=== PATIENT | female | born 1950 | race Asian ===

== ENCOUNTER → 2016-07-28 | Outpatient (CLI) | payer MEDICARE, BC | LOC: RAD 07:35 | PROVIDERS: ATTEND Internal Medicine Geriatric Medicine | DX: R13.10 Dysphagia, unspecified (principal) | CPT/HCPCS: 74210 ==

== ENCOUNTER 2016-09-02 15:42 | Emergency (ER) | payer MEDICARE, OTHER ==
[2016-09-02] MEDS ORDERED: ASPIRIN 81 MG TABLET, CHEWABLE PO ONE (15:47)
--- NOTE | 2016-09-02 15:59 | ER Document Report ---
ED Medical Screen (RME) - General Stated Complaint: CHEST PAINS Time seen by provider: 15:56 Mode of Arrival: Wheelchair Information source: Patient Notes: 65-year-old female presents to ED for chest pain is radiating to her back started yesterday. Denies any shortness of breath, nausea, denies pain in the jaw but had some neckt yesterday she had some numbness in her hands. I have greeted and performed a rapid initial assessment of this patient. A comprehensive ED assessment and evaluation of the patient, analysis of test results and completion of medical decision making process will be conducted by an additional ED providers. TRAVEL OUTSIDE OF THE [place] IN LAST 30 DAYS: No Physical Exam - Vital signs Vitals: Temp Pulse Resp BP Pulse Ox 99.2 F 67 16 152/72 H 98 09/02/16 15:53 09/02/16 15:53 09/02/16 15:53 09/02/16 15:53 09/02/16 15:53 Course - Vital Signs Vital signs: Temp Pulse Resp BP Pulse Ox 99.2 F 67 16 152/72 H 98 09/02/16 15:53 09/02/16 15:53 09/02/16 15:53 09/02/16 15:53 09/02/16 15:53
[2016-09-02 16:28] LABS: ABSOLUTE BASOPHILS # (AUTO) 0.1 10^3/uL (0.0-0.2); ABSOLUTE MONOCYTES (AUTO) 0.3 10^3/uL (0.1-1.4); ABSOLUTE NEUT (AUTO) 2.3 10^3/uL (1.7-8.2); BASOPHILS % (AUTO) 1.2 % (0-2); EOSINOPHILS % (AUTO) 0.8 % (0-6); HEMATOCRIT 42.9 % (36.0-47.0); HEMOGLOBIN 14.5 g/dL (12.0-15.5); HGB HCT DIFFERENCE 0.6; LYMPHOCYTES % (AUTO) 42.6 % (13-45); MEAN CORPUSCULAR HEMOGLOBIN 30.4 pg (27.0-33.4); MEAN CORPUSCULAR HGB CONC 33.7 g/dL (32.0-36.0); MEAN CORPUSCULAR VOLUME 90 fl (80-97); MONOCYTES % (AUTO) 6.5 % (3-13); RED BLOOD COUNT 4.76 10^6/uL (3.72-5.28); RED CELL DISTRIBUTION WIDTH 13.8 % (11.5-14.0); SEGMENTED NEUTROPHILS % (AUTO) 48.9 % (42-78); WHITE BLOOD COUNT 4.7 10^3/uL (4.0-10.5)
--- NOTE | 2016-09-02 16:28 | ER Document Report ---
ED Cardiac - General Chief Complaint: Chest Pain > 30 Stated Complaint: CHEST PAINS Mode of Arrival: Wheelchair Notes: The patient is a 65-year-old female, past medical history hypertension, presents with 2 days of worsening left-sided chest pain that is intermittent and occurs at rest. She went to her primary care physician's office, Dr. Reynaga, and was sent to the emergency room for further evaluation and treatment. She is not having active chest pain at this time. She has never had this before and has never had a stress test in the past. She denies shortness of breath, numbness, tingling, leg swelling, nausea, vomiting, abdominal pain or back pain. TRAVEL OUTSIDE OF THE [place] IN LAST 30 DAYS: No - Related Data Allergies/Adverse Reactions: No Known Allergies Allergy (Unverified 09/02/16 15:56) Past Medical History - General Information source: Patient - Social History Smoking Status: Never Smoker Chew tobacco use (# tins/day): No Frequency of alcohol use: None Drug Abuse: None Family History: Reviewed & Not Pertinent Patient has suicidal ideation: No Patient has homicidal ideation: No Renal/ Medical History: Denies: Hx Peritoneal Dialysis Review of Systems - Review of Systems Notes: REVIEW OF SYSTEMS: CONSTITUTIONAL: -fevers, -chills EENT: -eye pain, -difficulty swallowing, -nasal congestion CARDIOVASCULAR: +chest pain, -syncope. RESPIRATORY: -cough, -SOB GASTROINTESTINAL: -abdominal pain, - nausea, -vomiting, -diarrhea GENITOURINARY: -dysuria, -hematuria MUSCULOSKELETAL: -back pain, -neck pain SKIN: -rash or skin lesions. HEMATOLOGIC: -easy bruising or bleeding. LYMPHATIC: -swollen, enlarged glands. NEUROLOGICAL: -altered mental status or loss of consciousness, -headache, - neurologic symptoms PSYCHIATRIC: -anxiety, -depression. ALL OTHER SYSTEMS REVIEWED AND NEGATIVE. Physical Exam - Vital signs Vitals: Temp Pulse Resp BP Pulse Ox 99.2 F 67 16 152/72 H 98 09/02/16 15:53 09/02/16 15:53 09/02/16 15:53 09/02/16 15:53 09/02/16 15:53 - Notes Notes: PHYSICAL EXAMINATION: GENERAL: Well-appearing, well-nourished and in no acute distress. HEAD: Atraumatic, normocephalic. EYES: Pupils equal round and reactive to light, extraocular movements intact, sclera anicteric, conjunctiva are normal. ENT: nares patent, oropharynx clear without exudates. Moist mucous membranes. NECK: Normal range of motion, supple without lymphadenopathy LUNGS: Breath sounds clear to auscultation bilaterally and equal. No wheezes rales or rhonchi. HEART: Regular rate and rhythm without murmurs ABDOMEN: Soft, nontender, normoactive bowel sounds. No guarding, no rebound. No masses appreciated. EXTREMITIES: Normal range of motion, no pitting or edema. No cyanosis. NEUROLOGICAL: Cranial nerves grossly intact. Normal speech, normal gait. Normal sensory, motor, and reflex exams. PSYCH: Normal mood, normal affect. SKIN: Warm, Dry, normal turgor, no rashes or lesions noted. Course - Re-evaluation Re-evalutation: Pt's HEART score is 3. Symptoms atypical for PE or aortic dissection at this time. Her primary care physician is Dr. Reynaga. 09/02/16 17:[address] Reynaga and if second troponin is negative, patient can be seen in his office tomorrow morning for stress test. With the HEART score of 3, patient will be safe for outpatient evaluation of the chest pain. - Vital Signs Vital signs: Temp Pulse Resp BP Pulse Ox 99.2 F 67 15 162/82 H 98 09/02/16 15:53 09/02/16 15:53 09/02/16 19:00 09/02/16 18:01 09/02/16 19:00 - Laboratory Result Diagrams: 09/02/16 16:05 09/02/16 16:05 Discharge - Discharge Clinical Impression: Chest pain Qualifiers: Chest pain type: unspecified Qualified Code(s): R07.9 - Chest pain, unspecified Condition: Stable Disposition: HOME, SELF-CARE Additional Instructions: 2 blood tests looking at your heart, EKG and chest x-ray do not show any evidence of a big heart attack today. You must follow-up with Dr. Reynaga tomorrow for further evaluation and treatment of your chest pain and arrangement for a possible outpatient stress test. Return to the ER if he have worsening chest pain or any other concerns. CHEST PAIN OF UNCLEAR CAUSE: The exact cause of your chest pain isn't clear. Fortunately, there is no evidence of a dangerous medical condition. Further testing may be required to find the source of the pain. Most often, we find that this pain is coming from the chest wall -- the muscles or rib joints in the chest. But chest pain can come from the lung and lung lining, the esophagus, the heart valves or heart lining, and even the stomach or gallbladder. Rest. Eat lightly until the pain is gone. We may prescribe medicine for pain and inflammation. You should call the physician immediately if the pain radiates to the shoulder, jaw or arms; if you start to run a fever or develop a cough; or if you develop shortness of breath, or other new or alarming symptoms. NORMAL EXAM AND WORKUP: At this time, your examination and workup show no significant abnormality. No significant abnormal physical findings were noted. All laboratory, EKG, and imaging (x-ray, CT scans, ultrasound) studies that were ordered show no significant abnormality. Although your examination and all studies that were ordered showed no significant abnormal finding, there are no examinations and no studies that are 100% accurate. There is always the possibility that some abnormality could exist and not be detected with physical examination or within the limits and capabilities of laboratory and other studies. You should return or follow up as you were instructed on your visit today for further evaluation if your symptoms do not resolve. CHEST WALL PAIN: Your chest pain may be coming from the chest wall. This is often caused by straining the muscles or joints in the chest during physical activity, direct trauma, coughing, or vigorous vomiting. Persons with arthritis are especially prone to this type of pain, due to inflammation of the cartilage joints near the breast bone. Occasionally, no cause can be found. Rest from strenuous physical activity. This kind of chest pain is usually made worse by movement of the chest. Depending on the symptoms, we may prescribe medicine for pain, muscle relaxation, and antiinflammatory effects. If the pain is new, and seems to be due to muscle strain, cold packs can help. Otherwise, apply gentle warmth to the painful area for 15 minutes every hour or two. You should call contact the doctor immediately if things change. Further evaluation is needed if you develop a fever or cough, if the nature of the pain changes, or if you become short of breath. ANGINA EPISODE: Your physician has diagnosed the pain you experienced as an episode of angina. Angina occurs when a portion of the heart muscle temporarily lacks oxygen. It does not cause any permanent heart damage, but serves as a warning. Hospitalization is not necessary now. Evaluation of your cardiac condition , and medical therapy for angina will be necessary. It's important you be sure to keep all appointments and take medication exactly as prescribed. Angina is usually treated with a type of "nitrate" medication. This is available as ointment, pills, or sublingual (under the tongue) tablets. Depending on your clinical situation, other medications may be added to help control angina. These may include beta blockers or calcium blockers. If episodes of angina are occurring with increased frequency, or if chest pain lasts longer than 15 minutes or does not respond to nitroglycerin, you must seek emergency medical care immediately. ACID REFLUX DISEASE (GERD): Gastro-Esophageal Reflux Disease (GERD) is caused by stomach acid refluxing back up into the esophagus. The valve at the end of the esophagus may be weak. This is common in persons with a hiatal hernia. GERD symptoms can include indigestion, chest pain, heartburn, or food "sticking." Certain foods, alcohol, and aspirin can make GERD worse. Treatment depends on the severity. Usually, antacids or acid-suppressing medicines are used. When the esophagus is acutely inflamed, the physician will often prescribe membrane-protective drugs such as Carafate. Some patients benefit from medication such as Reglan that tightens the valve at the top of the stomach. Avoid those foods that bring on your symptoms. For many people, these foods are coffee, chocolate, onions, garlic, and carbonated drinks. Don't use alcohol, aspirin, caffeine, or tobacco. Don't eat late at night -- within 4 hours of bedtime. Don't over-eat. If necessary, elevate the head of your bed about 4 inches so that stomach acid will not roll up into your esophagus. Call the doctor if you develop severe chest pain, inability to swallow fluids, fever, or worsening symptoms. ASPIRIN: Aspirin has been shown to have a beneficial effect on blood circulation by reducing the clotting effect of platelets in the blood. These beneficial effects can be achieved by taking just a single baby (81 mg) aspirin a day. It is recommended that any person over the age of forty take a single baby aspirin every day for heart and brain circulation, unless you are allergic to aspirin or have some significant bleeding disorder. It is strongly recommended that people who have proven cardiac or blood circulation disturbances should take a baby aspirin every day. NITRATES: Nitroglycerin and related longer-acting nitrate medications are used to prevent or treat attacks of angina. These medicines dilate blood vessels, decreasing the work of the heart, and improving its supply of oxygen. Many different forms are available, including sublingual tablets (used under the tongue), sprays, skin patches, and long-acting pills. If the particular form of medication you have been given is not working well for you, contact your doctor. Long-acting forms: Take exactly as prescribed. Sudden stopping of medication can provoke increased attacks. Sublingual tabs or spray: A headache will usually occur with use. Sit or lie while waiting for the pain to go away. If angina doesn't respond to three doses (five minutes apart), call for emergency assistance. ANTACID THERAPY: You have been instructed to start antacid therapy. Antacids directly neutralize stomach acid. This is useful for acid irritation of the esophagus, gastritis, and ulcers. You should take two tablespoons of antacid one hour after each meal and three hours after each meal. If you are not eating, take the antacid every two hours. If you are using a concentrate (such as Maalox TC), use only one tablespoon. Many antacids affect the bowels. The most common problem is diarrhea. In this case, a pure aluminum hydroxide antacid (such as AlternaGel) can be substituted for some or all doses. If the problem is constipation, add a teaspoon of Milk of Magnesia to each dose. Call the doctor if you experience continued diarrhea or constipation, or if you develop lightheadedness, bloody stool or vomitus, severe abdominal pain, or black stool. PRILOSEC (ACID PUMP INHIBITOR): Prilosec (omeprazole) is an acid-pump inhibitor. It blocks the secretion of hydrogen ions in the acid-producing cells of the stomach. Prilosec keeps your stomach from making acid. Take all medication as prescribed, even after the pain is gone. Regular antacids may be added as needed if you have symptoms while taking this medicine. There are usually no side effects from this medication. Contact your doctor if there is fever, rash, yellow skin color, increasing abdominal pain, weakness, or unusual bruising. Return at once if you develop lightheadedness, black or bloody stool, or bloody vomitus. FOLLOW-UP CARE: If you have been referred to a physician for follow-up care, call the physician s office for an appointment as you were instructed or within the next two days. If you experience worsening or a significant change in your symptoms, notify the physician immediately or return to the Emergency Department at any time for re-evaluation. Forms: Elevated Blood Pressure Referrals: SUNDAY REYNAGA MD [Primary Care Provider] - Follow up as needed
[2016-09-02 16:49] LABS: ALANINE AMINOTRANSFERASE 40 U/L (9-52); ALBUMIN 4.3 g/dL (3.5-5.0); ALKALINE PHOSPHATASE 69 U/L (38-126); ANION GAP 8 (5-19); ASPARTATE AMINO TRANSFERASE 22 U/L (14-36); BILIRUBIN,TOTAL 0.8 mg/dL (0.2-1.3); BLOOD UREA NITROGEN 11 mg/dL (7-20); CALCIUM 9.8 mg/dL (8.4-10.2); CARBON DIOXIDE 28 mmol/L (22-30); CHLORIDE 106 mmol/L (98-107); CREATINE KINASE 79 U/L (30-135); CREATININE RESULT 0.65 mg/dL (0.52-1.25); GLUCOSE 88 mg/dL (75-110); MAGNESIUM 2.1 mg/dL (1.6-2.3); POTASSIUM 4.2 mmol/L (3.6-5.0); SODIUM 142.2 mmol/L (137-145); TOTAL PROTEIN 7.2 g/dL (6.3-8.2)
[2016-09-02 17:04] LABS: TROPONIN I < 0.012 ng/mL
[2016-09-02 20:37] VITALS: BP 128/82
--- NOTE | 2016-09-03 05:33 | EKG REPORT ---
SEVERITY:- ABNORMAL ECG - SINUS RHYTHM RIGHT BUNDLE BRANCH BLOCK : Confirmed by: Deysi Maria MD 03-Sep-2016 05:33:07
== END 2016-09-02 20:35 | disposition home or self-care (01) ==
LOC: ER 15:42
DX: R07.9 Chest pain, unspecified (principal); I10 Essential (primary) hypertension
CPT/HCPCS: 93005; 99285; 36415; 82553; 82550; 83735; 85025; 80053; 84484; 71020; 93010; A9270

== ENCOUNTER → 2017-04-12 | Outpatient (CLI) | payer MEDICARE, OTHER ==
--- NOTE | 2017-04-13 08:09 | WOMENS IMAGING REPORT ---
EXAM DESCRIPTION: 3D SCREENING MAMMO BILAT COMPLETED DATE/TIME: 04/12/2017 4:27 pm REASON FOR STUDY: ROUTINE SCREENING;Z12.31 Z12.31 ENCNTR SCREEN MAMMOGRAM FOR MALIGNANT NEOPLASM OF SCTOT COMPARISON: Multiple since 2010 TECHNIQUE: Standard craniocaudal and mediolateral oblique views of each breast recorded using digita l acquisition and breast tomosynthesis. LIMITATIONS: None. FINDINGS: No masses, calcifications or architectural distortion. No areas of suspicion. Read with the assistance of CAD. .[facility] - R2 Cenova Version 1.3 .[facility] - R2 Cenova Version 1.3 .[facility] - R2 Cenova Version 2.4 .[facility] [place] Cenova Version 2.4 .[facility] - R2 [employer] Safety Inspector Version 9.2 IMPRESSION: NORMAL MAMMOGRAM. BIRADS 1. BREAST DENSITY: b. There are scattered areas of fibroglandular density. BIRAD: 1 NEGATIVE RECOMMENDATION: ROUTINE SCREENING Please continue yearly bilateral screening tomosynthesis in March 2018 COMMENT: The patient has been notified of the results by letter per SA requirements. Additional no tification policies are in place for contacting patient with suspicious or incomplete findings. Quality ID #[id number]: The [employer] recommends an annual screening mammogram for women aged 40 years or over. This facility utilizes a reminder system to ensure that all patients receive reminder letters, and/or direct phone calls for appointments. This includes reminders for routine scr eening mammograms, diagnostic mammograms, or other Breast Imaging Interventions when appropriate. Th is patient will be placed in the appropriate reminder system. The [employer] (ACR) has developed recommendations for screening MRI of the breast s in certain patient populations, to be used in conjunction with mammography. Breast MRI surveillanc e may be appropriate for women with more than 20% lifetime risk of developing breast cancer as deter mined by genetic testing, significant family history of the disease, or history of mantle radiation f or Hodgkins Disease. ACR Practice Guidelines 2008. DBT Technology DBT is a type of tomographic mammography. With conventional mammography, overlapping breast tissue ma y make lesions difficult to detect, even with good compression. DBT uses an x-ray tube that rotates a round the breast, taking images at different angles. These images are then combined to create thin sl ices of the breast that the radiologist can view as a 3D reconstruction. The [employer] [facility] [employer] unit can perform full-field digital mammograms (2D imaging); or DBT (3D imaging); or both, in a combination mode that quickly performs both the mammogram and the tomosynthesis scan while the breast is still compressed. PQRS 6045F: Fluoroscopic imaging is not utilized for breast tomosynthesis. TECHNICAL DOCUMENTATION: FINDING NUMBER: (1) ASSESSMENT: (1) JOB ID: [id number] [employer]- All Rights Reserved
== END ==
LOC: WI 15:20
PROVIDERS: ATTEND Internal Medicine Geriatric Medicine
DX: Z12.31 Encounter for screening mammogram for malignant neoplasm of breast (principal)
CPT/HCPCS: 77063; G0202; 77067

== ENCOUNTER 2017-06-02 16:12 | Emergency (ER) | payer MEDICARE, OTHER ==
--- NOTE | 2017-06-02 16:43 | ER Document Report ---
ED Medical Screen (RME) - General Chief Complaint: Chest Pain Stated Complaint: CHEST PAIN Time Seen by Provider: 06/02/17 16:39 Notes: Patient states she has chest pain that is diffuse. It is on the right left front and back of her chest. She has had this she states for several months. She is also had a cough that is been being worked up by her primary care physician. She states that she was recently given some antibiotics and the cough has gotten better but the pain has increased. She denies any previous history of coronary artery disease. TRAVEL OUTSIDE OF THE [place] IN LAST 30 DAYS: No - Related Data Allergies/Adverse Reactions: No Known Allergies Allergy (Verified 06/02/17 16:14) Past Medical History - Social History Chew tobacco use (# tins/day): No Frequency of alcohol use: None Drug Abuse: None - Past Medical History Cardiac Medical History: Reports: Hx Hypertension Renal/ Medical History: Denies: Hx Peritoneal Dialysis Past Surgical History: Reports: Hx Orthopedic Surgery - bilat feet - Immunizations Hx Diphtheria, Pertussis, Tetanus Vaccination: No Physical Exam - Vital signs Vitals: Temp Pulse Resp BP Pulse Ox 98.3 F 76 18 137/66 H 97 06/02/17 16:25 06/02/17 16:25 06/02/17 16:25 06/02/17 16:25 06/02/17 16:25 Course - Vital Signs Vital signs: Temp Pulse Resp BP Pulse Ox 98.3 F 76 18 137/66 H 97 06/02/17 16:25 06/02/17 16:25 06/02/17 16:25 06/02/17 16:25 06/02/17 16:25
[2017-06-02 17:06] LABS: ABSOLUTE BASOPHILS # (AUTO) 0.1 10^3/uL (0.0-0.2); ABSOLUTE EOSINOPHILS # (AUTO) 0.1 10^3/uL (0.0-0.6); ABSOLUTE LYMPHOCYTES (AUTO) 2.5 10^3/uL (0.5-4.7); ABSOLUTE MONOCYTES (AUTO) 0.4 10^3/uL (0.1-1.4); ABSOLUTE NEUT (AUTO) 2.5 10^3/uL (1.7-8.2); BASOPHILS % (AUTO) 1.4 % (0-2); EOSINOPHILS % (AUTO) 1.5 % (0-6); HEMATOCRIT 40.9 % (36.0-47.0); HEMOGLOBIN 14.1 g/dL (12.0-15.5); HGB HCT DIFFERENCE 1.4; LYMPHOCYTES % (AUTO) 45.6 % (13-45); MEAN CORPUSCULAR HEMOGLOBIN 30.8 pg (27.0-33.4); MEAN CORPUSCULAR HGB CONC 34.5 g/dL (32.0-36.0); MEAN CORPUSCULAR VOLUME 89 fl (80-97); MONOCYTES % (AUTO) 7.6 % (3-13); RED BLOOD COUNT 4.58 10^6/uL (3.72-5.28); RED CELL DISTRIBUTION WIDTH 14.3 % (11.5-14.0); SEGMENTED NEUTROPHILS % (AUTO) 43.9 % (42-78); WHITE BLOOD COUNT 5.6 10^3/uL (4.0-10.5)
--- NOTE | 2017-06-02 17:16 | RADIOLOGY REPORT (SQ) ---
EXAM DESCRIPTION: CHEST PA/LAT COMPLETED DATE/TIME: 06/02/2017 5:07 pm REASON FOR STUDY: cp COMPARISON: None. EXAM PARAMETERS: NUMBER OF VIEWS: two views TECHNIQUE: Digital Frontal and Lateral radiographic views of the chest acquired. RADIATION DOSE: NA LIMITATIONS: none FINDINGS: LUNGS AND PLEURA: No opacities, masses or pneumothorax. No pleural effusion. MEDIASTINUM AND HILAR STRUCTURES: No masses or contour abnormalities. HEART AND VASCULAR STRUCTURES: Heart normal size. No evidence for failure. BONES: No acute findings. HARDWARE: None in the chest. OTHER: No other significant finding. IMPRESSION: NO SIGNIFICANT RADIOGRAPHIC FINDING IN THE CHEST. TECHNICAL DOCUMENTATION: JOB ID: [id number] [employer]- All Rights Reserved
[2017-06-02 17:23] LABS: ALANINE AMINOTRANSFERASE 48 U/L (9-52); ALBUMIN 4.4 g/dL (3.5-5.0); ALKALINE PHOSPHATASE 67 U/L (38-126); ANION GAP 12 (5-19); ASPARTATE AMINO TRANSFERASE 26 U/L (14-36); BILIRUBIN,DIRECT 0.2 mg/dL (0.0-0.4); BILIRUBIN,TOTAL 0.6 mg/dL (0.2-1.3); BLOOD UREA NITROGEN 21 mg/dL (7-20); CALCIUM 9.7 mg/dL (8.4-10.2); CARBON DIOXIDE 28 mmol/L (22-30); CHLORIDE 103 mmol/L (98-107); CREATININE RESULT 0.85 mg/dL (0.52-1.25); GLUCOSE 89 mg/dL (75-110); POTASSIUM 3.6 mmol/L (3.6-5.0); SODIUM 143.3 mmol/L (137-145); TOTAL PROTEIN 7.4 g/dL (6.3-8.2)
--- NOTE | 2017-06-02 17:25 | ER Document Report ---
ED General - General Chief Complaint: Chest Pain Stated Complaint: CHEST PAIN Time Seen by Provider: 06/02/17 16:39 Notes: 66 years old female presents today with nearly 4 month history of cough on and off, associated with generalized chest pain. Denies any recent precordial chest pain left arm numbness tingling sensation nausea vomiting palpitation or diaphoresis. Denies any wheezing. Denies any smoking cigarettes. But exposed to secondhand smoking. TRAVEL OUTSIDE OF THE [place] IN LAST 30 DAYS: No - Related Data Allergies/Adverse Reactions: No Known Allergies Allergy (Verified 06/02/17 16:14) Past Medical History - Social History Smoking Status: Never Smoker Chew tobacco use (# tins/day): No Frequency of alcohol use: None Drug Abuse: None Family History: Reviewed & Not Pertinent Patient has suicidal ideation: No Patient has homicidal ideation: No - Past Medical History Cardiac Medical History: Reports: Hx Hypertension Renal/ Medical History: Denies: Hx Peritoneal Dialysis Past Surgical History: Reports: Hx Orthopedic Surgery - bilat feet - Immunizations Hx Diphtheria, Pertussis, Tetanus Vaccination: No Review of Systems - Review of Systems Notes: REVIEW OF SYSTEMS: CONSTITUTIONAL : Denies fever, chills, or sweats. Denies recent illness. EENT: Denies eye, ear, throat, or mouth pain or symptoms. Denies nasal or sinus congestion or discharge. Denies throat, tongue, or mouth swelling or difficulty swallowing. CARDIOVASCULAR: . Denies palpitations or racing or irregular heart beat. Denies ankle edema. RESPIRATORY: Denies shortness of breath, difficulty breathing, or wheezing. GASTROINTESTINAL: Denies abdominal pain or distention. Denies nausea, vomiting , or diarrhea. Denies blood in vomitus, stools, or per rectum. Denies black, tarry stools. Denies constipation. GENITOURINARY: Denies difficulty urinating, painful urination, burning, frequency, blood in urine, or discharge. FEMALE GENITOURINARY: Denies vaginal bleeding, heavy or abnormal periods, irregular periods. Denies vaginal discharge or odor. MUSCULOSKELETAL: Denies back or neck pain or stiffness. Denies joint pain or swelling. SKIN: Denies rash, lesions or sores. HEMATOLOGIC : Denies easy bruising or bleeding. LYMPHATIC: Denies swollen, enlarged glands. NEUROLOGICAL: Denies confusion or altered mental status. Denies passing out or loss of consciousness. Denies dizziness or lightheadedness. Denies headache. Denies weakness or paralysis or loss of use of either side. Denies problems with gait or speech. Denies sensory loss, numbness, or tingling. Denies seizures. PSYCHIATRIC: Denies anxiety or stress. Denies depression, suicidal ideation, or homicidal ideation. ALL OTHER SYSTEMS REVIEWED AND NEGATIVE. PHYSICAL EXAMINATION: GENERAL: Well-appearing, well-nourished and in no acute distress. HEAD: Atraumatic, normocephalic. EYES: Pupils equal round and reactive to light, extraocular movements intact, conjunctiva are normal. ENT: Nares patent, oropharynx clear without exudates. Moist mucous membranes. NECK: Normal range of motion, supple without lymphadenopathy LUNGS: Breath sounds clear to auscultation bilaterally and equal. No wheezes rales or rhonchi. Chest wall: Sharp tenderness were noted over the trapezoid muscles at the insertion of scapula on the left side. Anterior chest wall tenderness noted on palpation HEART: Regular rate and rhythm without murmurs ABDOMEN: Soft, nontender, nondistended abdomen. No guarding, no rebound. No masses appreciated. Female : deferred Musculoskeletal: Normal range of motion, no pitting or edema. No cyanosis. NEUROLOGICAL: Cranial nerves grossly intact. Normal speech, normal gait. Normal sensory, motor exams PSYCH: Normal mood, normal affect. SKIN: Warm, Dry, normal turgor, no rashes or lesions noted. Dictation was performed using [employer] voice recognition software Physical Exam - Vital signs Vitals: Temp Pulse Resp BP Pulse Ox 98.3 F 76 18 137/66 H 97 06/02/17 16:25 06/02/17 16:25 06/02/17 16:25 06/02/17 16:25 06/02/17 16:25 Course - Re-evaluation Re-evalutation: 06/02/17 18:47 Patient feels comfortable, pain subsided - Vital Signs Vital signs: Temp Pulse Resp BP Pulse Ox 98.3 F 76 18 137/66 H 97 06/02/17 16:25 06/02/17 16:25 06/02/17 16:25 06/02/17 16:25 06/02/17 16:25 - Laboratory Result Diagrams: 06/02/17 16:55 06/02/17 16:55 Laboratory results interpreted by me: 06/02/17 06/02/17 16:55 16:55 RDW 14.3 H Lymphocytes % 45.6 H BUN 21 H - Diagnostic Test Radiology results interpreted by me: 06/02/17 18:46 Chest x-ray reported by radiologist was reviewed, normal finding - EKG Interpretation by Me EKG shows normal: Sinus rhythm - Sinus rhythm at rate of 65 bpm normal axis right bundle branch block pattern, no acute ST elevation ST depression T-wave inversion noted. Discharge - Discharge Clinical Impression: Chest wall pain Chronic bronchitis Qualifiers: Chronic bronchitis type: simple Qualified Code(s): J41.0 - Simple chronic bronchitis Disposition: HOME, SELF-CARE Instructions: Chest Wall Pain ([facility]) Additional Instructions: Chronic bronchitis Prescriptions: Albuterol Sulfate [Proair HFA Inhalation Aerosol 8.5 gm MDI] 2 puff IH Q4H PRN # 1 mdi PRN Reason: Guaifenesin/Codeine Phos [Robitussin-AC Syrup 59 ml] 10 ml PO NOW #120 ml Prednisone [Deltasone 20 mg Tablet] 1 tab PO DAILY 5 Days #7 tablet
[2017-06-02 19:26] VITALS: BP 129/63
--- NOTE | 2017-06-02 21:56 | EKG REPORT ---
SEVERITY:- ABNORMAL ECG - SINUS RHYTHM RIGHT BUNDLE BRANCH BLOCK : Confirmed by: Serafin Suarez 02-Jun-2017 21:55:17
== END 2017-06-02 19:32 | disposition home or self-care (01) ==
LOC: ER 16:12
DX: J41.0 Simple chronic bronchitis (principal); R07.89 Other chest pain; R05 Cough; I10 Essential (primary) hypertension; Z77.22 Contact with and (suspected) exposure to environmental tobacco smoke (acute) (chronic)
CPT/HCPCS: 36415; 71020; 80053; 84484; 85025; 93005; 93010; 99285

== ENCOUNTER → 2018-12-26 | Outpatient (CLI) | payer MEDICARE, OTHER ==
--- NOTE | 2018-12-27 08:00 | WOMENS IMAGING REPORT ---
EXAM DESCRIPTION: 3D SCREENING MAMMO BILAT COMPLETED DATE/TIME: 12/26/2018 8:20 am REASON FOR STUDY: Z12.31 ENCOUNTER FOR SCREENING MAMMOGRAM FOR MALIGNANT NEOPLASM OF BREAST Z12.31 ENCNTR SCREEN MAMMOGRAM FOR MALIGNANT NEOPLASM OF SCOTT COMPARISON: Multiple since 2010 EXAM PARAMETERS: Standard craniocaudal and mediolateral oblique views of each breast recorded using digital acquisition and breast tomosynthesis. Read with the assistance of CAD. .[facility] - [employer] Lump Inspector Version 9.2 LIMITATIONS: None. FINDINGS: RIGHT BREAST MASSES: In the right breast periareolar region 12 to 1 o'clock position, a mammographic low-density w ell-circumscribed nodule is present for which cone compression mammograms in the CC and MLO orientati ons is recommended, right breast 90 mediolateral view, and right breast ultrasound. CALCIFICATIONS: No new or suspicious calcifications. ARCHITECTURAL DISTORTION: None. DEVELOPING DENSITY: None. ASYMMETRY: None noted. OTHER: No other significant findings. LEFT BREAST MASSES: No suspicious masses. CALCIFICATIONS: No new or suspicious calcifications. ARCHITECTURAL DISTORTION: None. DEVELOPING DENSITY: None. ASYMMETRY: None noted. OTHER: No other significant findings. IMPRESSION: Nodule in the right breast 12 to 1 o'clock position periareolar for which additional uyen gnostic mammograms and ultrasound are recommended. No mammographic/ tomosynthesis evidence for malignancy left breast 0 Incomplete: Needs Additional Imaging Evaluation and/or prior Mammograms for Comparison. BREAST DENSITY: b. There are scattered areas of fibroglandular density. BIRAD: ASSESSMENT: 0 Incomplete: Needs Additional Imaging Evaluation and/or prior Mammograms for C omparison. RECOMMENDATION: RECOMMENDED FOLLOW-UP: Additional right breast diagnostic mammograms and diagnostic breast ultrasound The patient will be contacted for additional imaging. COMMENT: The patient has been notified of the results by letter per MQSA requirements. Additional no tification policies are in place for contacting patient with suspicious or incomplete findings. Quality ID #225: The [employer] recommends an annual screening mammogram for women aged 40 years or over. This facility utilizes a reminder system to ensure that all patients receive reminder letters, and/or direct phone calls for appointments. This includes reminders for routine scr eening mammograms, diagnostic mammograms, or other Breast Imaging Interventions when appropriate. Th is patient will be placed in the appropriate reminder system. TECHNICAL DOCUMENTATION: FINDING NUMBER: (1) ASSESSMENT: (1) JOB ID: [id number] [employer]- All Rights Reserved Reading location - IP/workstation name: [email or web address]
== END ==
LOC: WI 06:51
PROVIDERS: ATTEND Internal Medicine Geriatric Medicine
DX: Z12.31 Encounter for screening mammogram for malignant neoplasm of breast (principal); N63.41 Unspecified lump in right breast, subareolar
CPT/HCPCS: 77063; 77067

== ENCOUNTER → 2019-01-11 | Outpatient (CLI) | payer MEDICARE, OTHER ==
--- NOTE | 2019-01-11 08:33 | WOMENS IMAGING REPORT ---
EXAM DESCRIPTION: RIGHT DIAGNOSTIC MAMMO W/CAD; U/S BREAST UNILAT LIMITED COMPLETED DATE/TIME: 01/11/2019 8:05 am; 01/11/2019 8:23 am REASON FOR STUDY: N63.41 UNSPECIFIED LUMP IN RIGHT BREAST, SUBAREOLAR; RT BREAST N63.41 N63.41 UNSP ECIFIED LUMP IN RIGHT BREAST, SUBAREOLAR COMPARISON: 12/26/2018 and 04/12/2017. EXAM PARAMETERS: True lateral and spot compression lateral, MLO, and CC images acquired. LIMITATIONS: None. FINDINGS: BREAST LATERALITY: right MASSES: Nodule in the superior breast is circumscribed with smooth margins. CALCIFICATIONS: No new or suspicious calcifications. ARCHITECTURAL DISTORTION: None. DEVELOPING DENSITY: None. ASYMMETRY: None noted. OTHER: No other significant findings. BREAST ULTRASOUND: TECHNIQUE: Static and dynamic grayscale images acquired of the right breast in the specific areas of clinical/mammographic concern. Selected color Doppler images recorded. ELASTOGRAPHY PERFORMED: No. LIMITATIONS: None. FINDINGS: MASS: There are 2 cysts in the superior breast, measuring 5 x 6 mm and 4 x 7 x 9 mm. The largest has a few septations. Smooth margins with no distal shadowing. No solid mass identified. Normal gland ular tissue. ELASTOGRAPHY CHARACTERISTICS: Not applicable. OTHER: No other significant finding. IMPRESSION: Circumscribed nodule in the superior breast secondary to a cyst. No suspicious findings . BREAST DENSITY: b. There are scattered areas of fibroglandular density. BIRAD: ASSESSMENT: 2 Benign findings. RECOMMENDATION: RECOMMENDED FOLLOW UP: Birads 1 or 2: The patient should resume routine screening . SPECIFIC INTERVENTION/IMAGING/CONSULTATION RECOMMENDED:No additional intervention/ imaging/consultati on needed at this time. COMMUNICATION:The imaging findings were not discussed with the patient. Her referring provider has be en notified of the findings. COMMENT: The patient has been notified of the results by letter per MQSA requirements. Additional no tification policies are in place for contacting patient with suspicious or incomplete findings. Quality ID #225: The [employer] recommends an annual screening mammogram for women aged 40 years or over. This facility utilizes a reminder system to ensure that all patients receive reminder letters, and/or direct phone calls for appointments. This includes reminders for routine scr eening mammograms, diagnostic mammograms, or other Breast Imaging Interventions when appropriate. Th is patient will be placed in the appropriate reminder system. TECHNICAL DOCUMENTATION: FINDING NUMBER: (1) ASSESSMENT: (1) JOB ID: [id number] [employer]- All Rights Reserved Reading location - IP/workstation name: [email or web address]
== END ==
LOC: WI 07:39
PROVIDERS: ATTEND Internal Medicine Geriatric Medicine
DX: N63.41 Unspecified lump in right breast, subareolar (principal)
CPT/HCPCS: 76642

== ENCOUNTER → 2019-07-11 | Outpatient (CLI) | payer MEDICARE, OTHER ==
[~2019-07-11] MED LIST: ALBUTEROL SULFATE 0.083% NEB 2.5 MG/3 ML AMPUL NEB ONE
--- NOTE | 2019-07-12 15:19 | Pulmonary Function Test ---
Pulmonary Function Test Date of Procedure:: 07/11/19 INDICATION:: Dyspnea Referring Provider: Dr. Olson Attic Fans Mechanic: Lore Kerns, PUBLIC SERVICE DIRECTOR, DEDICATED OWNER OPERATOR - Report Spirometry: Spirometry: pre-FVC:[1.77 L 70%] post-FVC: 1.68 L 68% pre-FEV:1 1.31 L 65% post-FEV1: 1.35 L 66% pre-FEV1/FVC %: 74 post-FEV1/FVC%: 80 predicted: 83 [id number]%: 0.98 L 46% gjmc-AUU23-86%: 1.36 L 63% Lung Volume: Total lung capacity: 2.83 L 67% Vital capacity: 1.77 L 70% Inspiratory capacity: 1.26 L FRC N2: 1.54 L 67% ERV: 0.24 L RV: 1.06 L 83% RV/TLC %:: 38 predicted 40 Diffusion Capactity: DLCO: 17 90% DLCO/VA: 5.64 151% Impression: Mild obstructive ventilatory defect. Insignificant response to bronchodilator therapy. This does not preclude a clinical trial of bronchodilator therapy. Mild restrictive ventilatory defect. Restrictive defect may mask the degree of obstruction. No hyperinflation. No air trapping. Normal diffusion capacity.
== END ==
LOC: RT 07:20
PROVIDERS: ATTEND Internal Medicine Critical Care Medicine
DX: R06.09 Other forms of dyspnea (principal); R05 Cough; J45.991 Cough variant asthma
CPT/HCPCS: 94729; 94727; 94060; A9270

== ENCOUNTER 2019-08-06 17:36 | Emergency (ER) | payer MEDICARE, OTHER ==
[2019-08-06] MEDS ORDERED: ASPIRIN 81 MG TABLET, CHEWABLE PO ONE (18:22)
--- NOTE | 2019-08-06 18:22 | ER Document Report ---
ED Medical Screen (RME) - General Chief Complaint: Chest Pain Stated Complaint: CHEST PAIN, BACK PAIN,NECK PAIN Time Seen by Provider: 08/06/19 18:20 Primary Care Provider: SUNDAY REYNAGA MD [Primary Care Provider] - Follow up as needed Mode of Arrival: Ambulatory Information source: Patient Notes: 68-year-old female presents to ED for complaint of chest pain for the last couple weeks. She states today it developed into her chest shoulder through to her back and up her left side of her neck. She states when it started going up into her neck she became very concerned so he came to the emergency room. She states she does have a history of arthritis and reflux. She states she did go to the doctor was before and he told her it was the arthritis and reflux so now it is radiating to the neck and shoulder back and so she is become more nervous. She is alert oriented respirations regular nonlabored speaking in full sentences. She states she has had one baby aspirin this morning I have greeted and performed a rapid initial assessment of this patient. A comprehensive ED assessment and evaluation of the patient, analysis of test results and completion of medical decision making process will be conducted by an additional ED providers. TRAVEL OUTSIDE OF THE [place] IN LAST 30 DAYS: No - Related Data Allergies/Adverse Reactions: No Known Allergies Allergy (Verified 06/02/17 16:14) Past Medical History - Past Medical History Cardiac Medical History: Reports: Hx Hypertension Renal/ Medical History: Denies: Hx Peritoneal Dialysis Past Surgical History: Reports: Hx Orthopedic Surgery - bilat feet - Immunizations Hx Diphtheria, Pertussis, Tetanus Vaccination: No Doctor's Discharge - Discharge Referrals: SUNDAY REYNAGA MD [Primary Care Provider] - Follow up as needed
--- NOTE | 2019-08-06 18:29 | EKG REPORT ---
SEVERITY:- ABNORMAL ECG - SINUS RHYTHM RIGHT BUNDLE BRANCH BLOCK : Confirmed by: Serafin Suarez 06-Aug-2019 18:29:08
--- NOTE | 2019-08-06 18:53 | RADIOLOGY REPORT (SQ) ---
EXAM DESCRIPTION: CHEST 2 VIEWS COMPLETED DATE/TIME: 08/06/2019 6:34 pm REASON FOR STUDY: Chest pain radiating to back and neck COMPARISON: None. EXAM PARAMETERS: NUMBER OF VIEWS: two views TECHNIQUE: Digital Frontal and Lateral radiographic views of the chest acquired. RADIATION DOSE: NA LIMITATIONS: none FINDINGS: LUNGS AND PLEURA: No opacities, masses or pneumothorax. No pleural effusion. MEDIASTINUM AND HILAR STRUCTURES: No masses or contour abnormalities. HEART AND VASCULAR STRUCTURES: Heart normal size. No evidence for failure. BONES: No acute findings. HARDWARE: None in the chest. OTHER: No other significant finding. IMPRESSION: NO ACUTE RADIOGRAPHIC FINDING IN THE CHEST. TECHNICAL DOCUMENTATION: JOB ID: [id number] 2010 [employer]- All Rights Reserved Reading location - IP/workstation name: [email or web address]
[2019-08-06 19:10] LABS: ABSOLUTE BASOPHILS # (AUTO) 0.1 10^3/uL (0.0-0.2); ABSOLUTE EOSINOPHILS # (AUTO) 0.1 10^3/uL (0.0-0.6); ABSOLUTE LYMPHOCYTES (AUTO) 2.1 10^3/uL (0.5-4.7); ABSOLUTE MONOCYTES (AUTO) 0.4 10^3/uL (0.1-1.4); BASOPHILS % (AUTO) 1.3 % (0-2); EOSINOPHILS % (AUTO) 1.8 % (0-6); HEMATOCRIT 42.5 % (36.0-47.0); HEMOGLOBIN 14.6 g/dL (12.0-15.5); LYMPHOCYTES % (AUTO) 37.5 % (13-45); MEAN CORPUSCULAR HGB CONC 34.4 g/dL (32.0-36.0); MEAN CORPUSCULAR VOLUME 90 fl (80-97); PLATELET COUNT 210 10^3/uL (150-450); RED BLOOD COUNT 4.73 10^6/uL (3.72-5.28); RED CELL DISTRIBUTION WIDTH 14.8 % (11.5-14.0); SEGMENTED NEUTROPHILS % (AUTO) 52.4 % (42-78); TOTAL CELLS COUNTED % (AUTO) 100 %; WHITE BLOOD COUNT 5.7 10^3/uL (4.0-10.5)
[2019-08-06 19:26] LABS: ALBUMIN 4.4 g/dL (3.5-5.0); ALKALINE PHOSPHATASE 79 U/L (38-126); ANION GAP 7 (5-19); ASPARTATE AMINO TRANSFERASE 31 U/L (14-36); BILIRUBIN,TOTAL 0.7 mg/dL (0.2-1.3); BLOOD UREA NITROGEN 13 mg/dL (7-20); CALCIUM 9.9 mg/dL (8.4-10.2); CARBON DIOXIDE 29 mmol/L (22-30); CHLORIDE 103 mmol/L (98-107); GLUCOSE 88 mg/dL (75-110); POTASSIUM 3.7 mmol/L (3.6-5.0); TOTAL PROTEIN 7.4 g/dL (6.3-8.2)
[2019-08-06] MEDS ORDERED: METOCLOPRAMIDE HCL ORAL SOLN 10 MG/10 ML UDCUP PO ONE (22:02)
[2019-08-06] MEDS ORDERED: MAG HYDROX/AL HYDROX/SIMETH SUSP 30 ML UDCUP PO ONE (22:02)
[2019-08-06] MEDS ORDERED: LIDOCAINE 2% VISCOUS SOLN 15 ML UDCUP PO ONE (22:02)
--- NOTE | 2019-08-06 23:48 | RADIOLOGY REPORT (SQ) ---
EXAM DESCRIPTION: CT ABDOMEN PELVIS WITHOUT THEN WITH IV CONTRAST, CT CHEST ANGIOGRAPHY WITHOUT THEN WITH IV CONTRAST COMPLETED DATE/TME: 08/06/2019 22:34 CLINICAL HISTORY: 68 years, Female, chest pain to back and neck COMPARISON: None. TECHNIQUE: 726, 938 Images stored on PACS. All CT scanners at this facility use dose modulation, iterative reconstruction, and/or weight based dosing when appropriate to reduce radiation dose to as low as reasonably achievable (ALARA). Axial CTA images with coronal and sagittal MIPS [facility]: Dose Right [facility]: CareDose [facility]: Dose Right [facility]: Teradose 4D [facility]: [employer] LIMITATIONS: None. FINDINGS: CTA chest: Diffuse enlargement of the thyroid gland. Correlate with function. The mediastinal vasculature enhances normally. No filling defect to suggest pulmonary embolus. Negative for thoracic aortic aneurysm or dissection. Small hiatal hernia. Cardiomegaly. No mediastinal or hilar adenopathy. Osseous structures of the thorax are grossly intact. No pneumothorax. The visualized airways are patent. The lungs are clear. CTA abdomen/pelvis: Osseous structures of the abdomen/pelvis are grossly intact. The liver, spleen, adrenal glands, pancreas, kidneys are unremarkable. Gallbladder is present. No gross evidence for bowel obstruction. The celiac axis, superior mesenteric artery, inferior mesenteric artery are widely patent. Widely patent renal arteries bilaterally. Negative for abdominal aortic aneurysm or dissection. The bilateral common, internal, external iliac arteries are patent. The visualized common femoral and superficial femoral arteries are widely patent. No gross evidence for bowel obstruction. Abundant gas and stool in the colon. Normal appendix. No free air or free fluid. There is a 1.8 x 1.5 cm peripherally enhancing and somewhat complex appearing cystic area in the left perianal region. Correlate for the possibility of small perianal abscess. The issue rectal fossa is preserved. Bulky heterogeneous appearance to the uterus suggesting fibroid change. Bilateral adnexal cysts, on the left measuring 2.0 x 1.7 cm. IMPRESSION: The CTA portion of the exam is unremarkable. No acute intrathoracic process. Cardiomegaly. Enlargement of the thyroid. Findings suspicious for small left perianal abscess. Probable fibroid change to the uterus. 2 cm left adnexal cyst. Recommend follow-up as per below. Recommendations for Benign-appearing simple adnexal cysts on CT with IV contrast and MR: (1)(2) Pre-menopause(3) (<= 50 years if LMP unknown): <=5 cm: No follow-up imaging recommended >5 cm - <=7 cm: US f/u 6-12 weeks >7 cm: Consider MR w/IVC or surgical evaluation Early post-menopause (<=5 years from LMP; > 50 years to <= 55 years if LMP unknown): <=3 cm: No follow-up imaging recommended (4) >3 cm - <=5 cm: US f/u 6-12 months (4) >5 cm - <=7 cm: US f/u promptly >7cm: Consider MR w/IVC or surgical evaluation Late post-menopause (>5 years from LMP; > 55 years if LMP unknown): <=3 cm: No follow-up imaging recommended >3 cm - <=7 cm: US f/u promptly >7 cm: Consider MR w/IVC or surgical evaluation (1)Recommendations based on the 2013 ACR White Paper for Managing Incidental Adnexal Findings on Abdominal and Pelvic CT and MRI: J Am Kevin Radiol 2013;10:675-681 (2)Excludes normal/benign findings such as ovarian calcifications w/o associated non-calcified mass, corpus luteum cyst, previously characterized cyst and cyst with documented stability in size and appearance for >2 years (3)Includes cysts with layering hemorrhage (4)If internal hemorrhage suspected in cyst, US f/u 6-12 weeks TECHNICAL DOCUMENTATION: Quality ID # 436: Final reports with documentation of one or more dose reduction techniques (e.g., Automated exposure control, adjustment of the mA and/or kV according to patient size, use of iterative reconstruction technique) copyright 2011 [employer]- All Rights Reserved
[2019-08-07 00:43] VITALS: BP 142/86
--- NOTE | 2019-08-07 00:59 | ER Document Report ---
ED General - General Chief Complaint: Chest Pain > 30 Stated Complaint: CHEST PAIN, BACK PAIN,NECK PAIN Time Seen by Provider: 08/06/19 18:20 Primary Care Provider: SUNDAY REYNAGA MD [Primary Care Provider] - Follow up as needed Mode of Arrival: Ambulatory Notes: 68-year-old female presents emergency department with complaints of midsternal stabbing and occasional squeezing chest pain for the past several weeks that has recently become associated with left-sided neck pain and some back pain for the past several days and then became associated with lip twitching starting this morning. States that she is scheduled for stress test 1 week from today with her primary care physician Dr. Reynaga ordering the test. States that it does not feel the same as her reflux but it does improve with glpe-ywu-zcbvqmd acid antacid medication. Does also state it worsens with exertion. Denies any history of heart attack or stroke. TRAVEL OUTSIDE OF THE [place] IN LAST 30 DAYS: No - Related Data Allergies/Adverse Reactions: No Known Allergies Allergy (Verified 08/06/19 18:22) Home Medications: pantoprazole, losartan, asa Past Medical History - General Information source: Patient - Social History Smoking Status: Never Smoker Chew tobacco use (# tins/day): No Frequency of alcohol use: None Drug Abuse: None Family History: Reviewed & Not Pertinent Patient has suicidal ideation: No Patient has homicidal ideation: No - Past Medical History Cardiac Medical History: Reports: Hx Hypertension Renal/ Medical History: Denies: Hx Peritoneal Dialysis Past Surgical History: Reports: Hx Orthopedic Surgery - bilat feet - Immunizations Hx Diphtheria, Pertussis, Tetanus Vaccination: No Review of Systems - Review of Systems Constitutional: No symptoms reported EENT: No symptoms reported Cardiovascular: See HPI Respiratory: See HPI, Short of breath Gastrointestinal: No symptoms reported Musculoskeletal: See HPI, Back pain, Neck pain -: Yes All other systems reviewed and negative Physical Exam - Vital signs Vitals: Temp Pulse Resp BP Pulse Ox 98.4 F 70 18 135/58 H 97 08/06/19 18:22 08/06/19 18:22 08/06/19 18:22 08/06/19 18:22 08/06/19 18:22 Interpretation: Normal - Notes Notes: GENERAL: Alert, interacts well. No acute distress. HEAD: Normocephalic, atraumatic EYES: Pupils equal, round and reactive to light, extraocular movements intact. ENT: Oral mucosa moist, tongue midline. NECK: Full range of motion, supple, trachea midline. LUNGS: Clear to auscultation bilaterally, no wheezes, rales or rhonchi, no respiratory distress. HEART: Regular rate and rhythm, no murmurs, gallops, rubs. ABDOMEN: Soft, nontender, nondistended, bowel sounds present in all 4 quadrants. EXTREMITIES: Moves all 4 extremities spontaneously, no edema, radial and dorsalis pedis pulses 2/4 bilaterally. No cyanosis. NEUROLOGICAL: Alert and oriented x3, normal speech. RECTAL: No pain, no masses, no abscess. PSYCH: Normal mood, normal affect. SKIN: Warm, Dry, normal turgor, no rashes or lesions noted. Course - Re-evaluation Re-evalutation: 08/07/19 00:58 CBC unremarkable, CMP unremarkable, cardiac enzymes negative x2, chest x-ray shows no acute process, CTA of the chest, abdomen and pelvis was ordered due to concern for aortic dissection given her chest pain that is now radiating to her neck and her back. This is negative. Patient was treated with a GI cocktail. Pain improved but did not completely resolve. Patient is recommended to not engage in any strenuous activity for the next week, keep her appointment for her stress test as scheduled by Dr. Reynaga next week and return for any worsening of pain or shortness of breath. Patient was informed of the bilateral adnexal cysts found on CAT scan, informed of the timeframe to follow-up. Discharged to home. Recommended to start a daily antacid. 08/07/19 00:59 CT scan also discussed possible perianal abscess, none was found on physical examination. - Vital Signs Vital signs: Temp Pulse Resp BP Pulse Ox 98.3 F 70 17 142/86 H 99 08/07/19 00:24 08/06/19 18:22 08/07/19 00:24 08/07/19 00:24 08/07/19 00:24 - Laboratory Result Diagrams: 08/06/19 18:50 08/06/19 18:50 Laboratory results interpreted by me: 08/06/19 18:50 RDW 14.8 H - EKG Interpretation by Me Additional EKG results interpreted by me: 08/07/19 01:00 EKG shows sinus rhythm at a rate of 66, right bundle branch block, no ST segment elevations or depressions per my interpretation. Discharge - Discharge Clinical Impression: Chest pain of uncertain etiology, Bilateral adnexal cyst Condition: Stable Disposition: HOME, SELF-CARE Additional Instructions: Chest Pain of Unclear Cause The exact cause of your chest pain isn't clear. Fortunately, there is no evidence of a heart attack today. It is very important that you keep your scheduled appointment for a stress test on Tuesday. I want you to avoid strenuous exercise or anything that makes you short of breath until you have had the stress test. Please take your choice of wonx-laf-pdmqfmh antacid such as Pepcid or Zantac 1 tab twice a day for the next 2 weeks to see if this improves her pain. You do have cysts on your ovaries on both sides. Because they are less than 3 cm you do not actually need to have them followed up. I do want you to let Dr. Reynaga know that your CAT scan today did identify cysts on your ovaries in case he would like to investigate them further. Rest. Eat lightly until the pain is gone. We may prescribe medicine for pain and inflammation. You should call the physician immediately if the pain radiates to the shoulder, jaw or arms; if you start to run a fever or develop a cough; or if you develop shortness of breath, or other new or alarming symptoms. Referrals: SUNDAY REYNAGA MD [Primary Care Provider] - Follow up as needed
== END 2019-08-07 01:06 | disposition home or self-care (01) ==
LOC: ER 17:36
DX: R07.9 Chest pain, unspecified (principal); M54.2 Cervicalgia; M54.9 Dorsalgia, unspecified; R25.3 Fasciculation; N83.202 Unspecified ovarian cyst, left side; N83.201 Unspecified ovarian cyst, right side; I45.10 Unspecified right bundle-branch block; I10 Essential (primary) hypertension; K21.9 Gastro-esophageal reflux disease without esophagitis; Z79.899 Other long term (current) drug therapy; Z79.82 Long term (current) use of aspirin
CPT/HCPCS: 93005; 99285; 36415; 85025; 80053; 84484; 71046; 71275; 74174; 93010; A9270 ×3; J3490

== ENCOUNTER → 2019-08-20 | Outpatient (CLI) | payer MEDICARE, OTHER ==
--- NOTE | 2019-08-20 08:48 | WOMENS IMAGING REPORT ---
EXAM DESCRIPTION: TRANSVAGINAL ULTRASOUND COMPLETED DATE/TIME: 08/20/2019 7:49 am REASON FOR STUDY: N83.299 OTHER OVARIAN CYST, UNSPECIFIED SIDE N83.299 OTHER OVARIAN CYST, UNSPECIF IED SIDE COMPARISON: None. TECHNIQUE: Dynamic and static grayscale images acquired of the pelvis via transvaginal approach and recorded on PACS. Additional selected color Doppler and spectral images recorded. LIMITATIONS: None. FINDINGS: UTERUS: The uterus is retroverted. A 2.1 x 2.0 x 1.9 cm fibroid in the body of the uteru s. ENDOMETRIAL STRIPE: The endometrial stripe is prominent in appearance. CERVIX: Nbothian cyst. RIGHT OVARY AND DOPPLER: Normal size. No worrisome masses. Normal arterial vascular flow without evid ence for torsion. LEFT OVARY AND DOPPLER: Normal size. A 1.9 x 1.9 x 2.0 cm cyst. Normal arterial vascular flow withou t evidence for torsion. FREE FLUID: None noted. OTHER: No other significant finding. MEASUREMENTS: UTERUS: 7.4 x 3.8 x 4.4 cm ENDOMETRIAL STRIPE: 6.1 mm RIGHT OVARY: 2.1 x 2.0 x 2.5 cm LEFT OVARY: 3.4 x 3.2 x 3.4 cm IMPRESSION: 1. The uterus is retroverted. Uterine fibroid. 2. Mild prominence of the endometrial stripe. 3. Left ovarian cyst. 4. Nabothian cyst in the cervix region. COMMENT: Postmenopausal Cysts US Benign-Simple cyst:>1 and ? 7 cm: yearly followup ultrasound TECHNICAL DOCUMENTATION: JOB ID: [id number] 2010 [employer]- All Rights Reserved Rev-11/04 Reading location - IP/workstation name: [email or web address]
== END ==
LOC: WI 07:03
PROVIDERS: ATTEND Internal Medicine Geriatric Medicine
DX: N83.292 Other ovarian cyst, left side (principal); D25.9 Leiomyoma of uterus, unspecified; N88.8 Other specified noninflammatory disorders of cervix uteri
CPT/HCPCS: 76830

== ENCOUNTER → 2020-01-29 | Outpatient (CLI) | payer MEDICARE, OTHER ==
--- NOTE | 2020-01-29 08:58 | WOMENS IMAGING REPORT ---
EXAM DESCRIPTION: BILAT SCREENING MAMMO W/CAD IMAGES COMPLETED DATE/TIME: 01/29/2020 7:39 am REASON FOR STUDY: Z12.31 ENCOUNTER FOR SCREENING MAMMOGRAM FOR MALIGNANT NEOPLASM OF BREAST Z12.31 ENCNTR SCREEN MAMMOGRAM FOR MALIGNANT NEOPLASM OF SCOTT COMPARISON: 2017 to 2018 EXAM PARAMETERS: Standard craniocaudal and mediolateral oblique views of each breast recorded using digital acquisition. Read with the assistance of CAD. .[facility] - [employer] Cardiac Exercise Physiologist Version 9.2 LIMITATIONS: None. FINDINGS: No suspicious masses, suspicious calcifications or architectural distortion. No areas of c oncern. IMPRESSION: NEGATIVE MAMMOGRAM. BIRADS 1 BREAST DENSITY: b. There are scattered areas of fibroglandular density. BIRAD: ASSESSMENT: 1 NEGATIVE RECOMMENDATION: ROUTINE SCREENING COMMENT: The patient has been notified of the results by letter per MQSA requirements. Additional no tification policies are in place for contacting patient with suspicious or incomplete findings. Quality ID #225: The [employer] recommends an annual screening mammogram for women aged 40 years or over. This facility utilizes a reminder system to ensure that all patients receive reminder letters, and/or direct phone calls for appointments. This includes reminders for routine scr eening mammograms, diagnostic mammograms, or other Breast Imaging Interventions when appropriate. Th is patient will be placed in the appropriate reminder system. TECHNICAL DOCUMENTATION: FINDING NUMBER: (1) ASSESSMENT: (1) JOB ID: [id number] 2010 [employer]- All Rights Reserved Reading location - IP/workstation name: [email or web address]
== END ==
LOC: WI 06:53
PROVIDERS: ATTEND Nurse Practitioner Adult Health
DX: Z12.31 Encounter for screening mammogram for malignant neoplasm of breast (principal)
CPT/HCPCS: 77067

== ENCOUNTER 2020-03-23 20:12 | Emergency (ER) | payer MEDICARE, OTHER ==
--- NOTE | 2020-03-23 21:45 | ER Document Report ---
ED Medical Screen (RME) - General Chief Complaint: Nausea Stated Complaint: NAUSEA,DIZZINESS,BODY ACHES Time Seen by Provider: 03/23/20 21:34 Primary Care Provider: BEN DAO NP-C [Primary Care Provider] - Follow up as needed Mode of Arrival: Ambulatory Information source: Patient Notes: HPI; 69-year-old female presents to the emergency room complaining of dizziness that started earlier today. Complains of shortness of breath and fatigue with headache for the past week. States she feels off balance when she walks. She denies any chest pain. Denies any recent travel. Denies any COVID-19 exposure. PE: Alert and oriented x3. Mild distress noted. Lungs: Clear to auscultation without rales, rhonchi, wheezes. Heart: Regular rate rhythm without murmurs, rubs, gallops. I have greeted and performed a rapid initial assessment of this patient. A comprehensive ED assessment and evaluation of the patient, analysis of test results and completion of the medical decision making process will be conducted by additional ED providers. I have specifically instructed the patient or family members with the patient to immediately return to any nursing staff should anything change in the patient's condition or with their chief complaint. TRAVEL OUTSIDE OF THE [place] IN LAST 30 DAYS: No - Related Data Allergies/Adverse Reactions: No Known Allergies Allergy (Verified 08/06/19 18:22) Past Medical History - Past Medical History Cardiac Medical History: Reports: Hx Hypertension Renal/ Medical History: Denies: Hx Peritoneal Dialysis Past Surgical History: Reports: Hx Orthopedic Surgery - bilat feet - Immunizations Hx Diphtheria, Pertussis, Tetanus Vaccination: No Physical Exam - Vital signs Vitals: Temp Pulse Resp BP Pulse Ox 98.7 F 61 18 121/54 L 99 03/23/20 21:31 03/23/20 21:31 03/23/20 21:31 03/23/20 21:31 03/23/20 21:31 Course - Vital Signs Vital signs: Temp Pulse Resp BP Pulse Ox 98.7 F 61 18 121/54 L 99 03/23/20 21:31 03/23/20 21:31 03/23/20 21:31 03/23/20 21:31 03/23/20 21:31 Doctor's Discharge - Discharge Referrals: SYLWIA,BEN, [employer]-C [Primary Care Provider] - Follow up as needed
[2020-03-23 21:52] LABS: ABSOLUTE EOSINOPHILS # (AUTO) 0.1 10^3/uL (0.0-0.6); ABSOLUTE LYMPHOCYTES (AUTO) 1.8 10^3/uL (0.5-4.7); ABSOLUTE MONOCYTES (AUTO) 0.5 10^3/uL (0.1-1.4); ABSOLUTE NEUT (AUTO) 2.6 10^3/uL (1.7-8.2); TOTAL CELLS COUNTED % (AUTO) 100 %
[2020-03-23 22:00] LABS: EOSINOPHILS % (AUTO) 1.8 % (0-6); HEMATOCRIT 40.6 % (36.0-47.0); HEMOGLOBIN 13.9 g/dL (12.0-15.5); LYMPHOCYTES % (AUTO) 36.6 % (13-45); MEAN CORPUSCULAR HEMOGLOBIN 31.3 pg (27.0-33.4); MEAN CORPUSCULAR HGB CONC 34.3 g/dL (32.0-36.0); MEAN CORPUSCULAR VOLUME 91 fl (80-97); MONOCYTES % (AUTO) 9.2 % (3-13); PLATELET COUNT 196 10^3/uL (150-450); RED BLOOD COUNT 4.45 10^6/uL (3.72-5.28); RED CELL DISTRIBUTION WIDTH 14.1 % (11.5-14.0); SEGMENTED NEUTROPHILS % (AUTO) 51.4 % (42-78)
[2020-03-23 22:11] LABS: ALBUMIN 4.3 g/dL (3.5-5.0); ALKALINE PHOSPHATASE 67 U/L (38-126); ANION GAP 7 (5-19); ASPARTATE AMINO TRANSFERASE 31 U/L (14-36); BILIRUBIN,DIRECT 0.2 mg/dL (0.0-0.4); BILIRUBIN,TOTAL 0.8 mg/dL (0.2-1.3); BLOOD UREA NITROGEN 14 mg/dL (7-20); CALCIUM 9.3 mg/dL (8.4-10.2); CARBON DIOXIDE 29 mmol/L (22-30); CHLORIDE 105 mmol/L (98-107); GLUCOSE 114 mg/dL (75-110); POTASSIUM 4.1 mmol/L (3.6-5.0)
--- NOTE | 2020-03-23 22:23 | RADIOLOGY REPORT (SQ) ---
EXAM DESCRIPTION: XR CHEST 1 VIEW COMPLETED DATE/TME: 03/23/2020 21:45 CLINICAL HISTORY: 69 years, Female, shortness of breath COMPARISON: 06/02/2017 chest NUMBER OF VIEWS: 1 TECHNIQUE: Portable chest LIMITATIONS: None. FINDINGS: Heart size normal. Lungs clear. No pneumothorax IMPRESSION: Negative chest copyright 2010 [employer]- All Rights Reserved
--- NOTE | 2020-03-23 22:29 | RADIOLOGY REPORT (SQ) ---
CT HEAD WITHOUT IV CONTRAST CLINICAL STATEMENT: dizzy TECHNIQUE: Axial CT images from skull base to vertex without IV contrast. This exam was performed according to our departmental dose optimization program, and includes the following measures where applicable: automated exposure control, adjustment of the mAs and/or kVp according to patient size and/or exam, and an iterative reconstruction algorithm. COMPARISON: None. FINDINGS: There is no acute intracranial hemorrhage, mass, mass effect or abnormal extra-axial fluid collection. No evidence of an acute territorial infarct is identified. The ventricles are normal. Calvaria: The skull base and calvaria demonstrate no abnormality. Paranasal sinuses: Visualized portions of the orbits and paranasal sinuses are unremarkable. skull base: Unremarkable IMPRESSION: No acute intracranial abnormality.
[2020-03-23] MEDS ORDERED: ACETAMINOPHEN 325 MG TABLET PO ONE (23:32)
--- NOTE | 2020-03-24 00:31 | ER Document Report ---
ED General - General Chief Complaint: Dizziness Stated Complaint: NAUSEA,DIZZINESS,BODY ACHES Time Seen by Provider: 03/23/20 21:34 Primary Care Provider: BEN DAO NP-C [Primary Care Provider] - Follow up as needed Mode of Arrival: Ambulatory TRAVEL OUTSIDE OF THE [place] IN LAST 30 DAYS: No - HPI Notes: Patient is a 69-year-old female who presents to the emergency department for evaluation of dizziness. It started today. She states she has just felt weak for 7 days, increased malaise. When asked about a cough, she states "sometimes." She said no fevers or chills. No nausea or vomiting. She is eating drinking normally. She states she had some diarrhea last week but this is entirely resolved. She has not been exposed to anyone with COVID-19, but she thinks she should be tested for the virus. - Related Data Allergies/Adverse Reactions: No Known Allergies Allergy (Verified 08/06/19 18:22) Home Medications: Patient does not know all of her medications. She states she takes an antihypertensive and a water pill, as well as Synthroid 3 times a week. She also takes multiple vitamins. Past Medical History - General Information source: Patient - Social History Smoking Status: Never Smoker Frequency of alcohol use: None Drug Abuse: None Family History: Reviewed & Not Pertinent - Past Medical History Cardiac Medical History: Reports: Hx Hypertension Endocrine Medical History: Reports: Hx Hypothyroidism Renal/ Medical History: Denies: Hx Peritoneal Dialysis Past Surgical History: Reports: Hx Orthopedic Surgery - bilat feet - Immunizations Hx Diphtheria, Pertussis, Tetanus Vaccination: No Review of Systems - Review of Systems Constitutional: See HPI EENT: No symptoms reported Cardiovascular: No symptoms reported Respiratory: See HPI Gastrointestinal: No symptoms reported Genitourinary: No symptoms reported Musculoskeletal: No symptoms reported Skin: No symptoms reported Neurological/Psychological: No symptoms reported Physical Exam - Vital signs Vitals: Temp Pulse Resp BP Pulse Ox 98.7 F 61 18 121/54 L 99 03/23/20 21:31 03/23/20 21:31 03/23/20 21:31 03/23/20 21:31 03/23/20 21:31 - Notes Notes: Vital signs reviewed, please refer to chart. Head is normocephalic, atraumatic. Pupils equal round, reactive to light. Neck is supple without meningismus. Heart is regular rate and rhythm. Lungs are clear to auscultation bilaterally. Abdomen is soft, nontender, normoactive bowel sounds throughout. Extremities wi thout cyanosis, clubbing. Posterior calves are nontender. Peripheral pulses are equal. Skin is warm and dry. Patient is awake, alert, oriented x3. Cranial nerves II - XII are grossly intact without focal neurological deficits. Strength is plus 5 out of 5 bilateral upper and lower extremities. Sensation is intact. Reflexes symmetrical. Intact [id number], rapid alternating movements, [id number]. Course - Re-evaluation Re-evalutation: 03/24/20 00:35 Patient presents to the emergency department for evaluation. She complains of dizziness, and occasional cough. She is concerned that she has COVID-19. I told her that her symptoms will make this unlikely, but I would happily run this test. She had nasopharyngeal swab for COVID-19. Otherwise her work-up here was entirely unremarkable. Her vital signs are stable. She has a normal neurological exam. She is to follow-up with her primary care provider this week, preferably via a telehealth visit. She is to return to the ED with worsening or new concerning symptoms. Otherwise she is told she is a person under investigation and is to isolate at home. - Vital Signs Vital signs: Temp Pulse Resp BP Pulse Ox 98.3 F 61 18 121/54 L 99 03/23/20 23:47 03/23/20 21:31 03/23/20 21:31 03/23/20 21:31 03/23/20 21:31 - Laboratory Result Diagrams: 03/23/20 21:25 03/23/20 21:25 Laboratory results interpreted by me: 03/23/20 03/23/20 21:25 21:25 RDW 14.1 H Glucose 114 H - Diagnostic Test Radiology reviewed: Reports reviewed Radiology results interpreted by me: 03/24/20 00:[address] 03/23/20 21:43 IMPRESSION: No acute intracranial abnormality. Chest X-Ray 03/23/20 21:45 IMPRESSION: Negative chest copyright 2010 [employer] All Rights Reserved - EKG Interpretation by Me Additional EKG results interpreted by me: 03/24/20 00:36 Sinus bradycardia with a rate of 58 bpm. Normal axis. Right bundle branch bl ock. No change from prior study in July 2019. Discharge - Discharge Clinical Impression: Dizziness, Person under investigation for COVID-19 Condition: Stable Disposition: HOME, SELF-CARE Instructions: COVID-19 Guidance for Persons Under Investigation, Dizziness ([facility]) Additional Instructions: Isolate at home as discussed. Your COVID test is pending at this time. Rest, stay well-hydrated. Continue your regular medications as prescribed. Follow-up with your primary care provider this week. Return to the emergency department with worsening or new concerning symptoms of any sort. Referrals: BEN DAO NP-C [Primary Care Provider] - Follow up as needed
[2020-03-24 00:51] VITALS: BP 115/65
--- NOTE | 2020-03-24 06:35 | EKG REPORT ---
SEVERITY:- ABNORMAL ECG - SINUS RHYTHM RIGHT BUNDLE BRANCH BLOCK : Confirmed by: Daren Ramirez MD 24-Mar-2020 06:34:41
== END 2020-03-24 00:49 | disposition home or self-care (01) ==
LOC: ER 20:12
DX: R42 Dizziness and giddiness (principal); R00.1 Bradycardia, unspecified; R53.1 Weakness; R53.81 Other malaise; R05 Cough; R06.02 Shortness of breath; R51.9 Headache, unspecified; I45.10 Unspecified right bundle-branch block; I10 Essential (primary) hypertension; E03.9 Hypothyroidism, unspecified; Z79.899 Other long term (current) drug therapy; Z20.828 Contact with and (suspected) exposure to other viral communicable diseases
CPT/HCPCS: 93005; 99285; 36415; 85025; 80053; 84484; 71045; 70450; 93010; U0003; C9803; 87635